=== PATIENT | female | born 1990 | race Caucasian/White ===

== ENCOUNTER → 2017-10-25 | Outpatient (CLI) | payer OTHER ==
[~2017-10-25] MED LIST: BACTRIM PEDIAT200 ML PO; BENADRYL25 MG PO; BIRTH CONTROL1 EAC1 PO; EPI-PEN1 MG/ML MR; LAMICTAL25 MG; MACROBID100 M1 PO; MOTRIN800 MG; MOTRIN800 MG PO; PEPCID20 MG PO; PNV-SELECT1 TAB PO; PREDNICOT20 MG PO; PREDNISOLON5 MG/5 ML PO; ZOLOFT50 MG PO
== END | disposition home or self-care (01) ==
LOC: US 09:30
DX: N63.0 Unspecified lump in unspecified breast (principal)

== ENCOUNTER → 2018-05-25 | Outpatient (CLI) | payer OTHER | END | disposition home or self-care (01) | LOC: MRI 09:00 | DX: M25.862 Other specified joint disorders, left knee (principal); Z98.890 Other specified postprocedural states ==

== ENCOUNTER → 2021-05-29 | Outpatient (CLI) | payer BC | END | disposition home or self-care (01) | LOC: COVID19 15:57 | PROVIDERS: ATTEND Internal Medicine | DX: U07.1 COVID-19 (principal) ==

== ENCOUNTER 2021-09-01 20:08 | Emergency (ER) | payer OTHER ==
[~2021-09-01] VITALS: Ht 165.1 cm; Wt 98.9 kg
== END 2021-09-01 22:34 | disposition home or self-care (01) ==
LOC: ED 20:08
DX: S66.911A Strain of unspecified muscle, fascia and tendon at wrist and hand level, right hand, initial encounter (principal); W01.0XXA Fall on same level from slipping, tripping and stumbling without subsequent striking against object, initial encounter; Y93.89 Activity, other specified; Y92.89 Other specified places as the place of occurrence of the external cause; Y99.8 Other external cause status

== ENCOUNTER → 2022-04-22 | Outpatient (CLI) | payer OTHER | END | disposition home or self-care (01) | LOC: MAMMO 00:15 | PROVIDERS: ATTEND Nurse Practitioner Women's Health | DX: N63.12 Unspecified lump in the right breast, upper inner quadrant (principal); N60.01 Solitary cyst of right breast ==

== ENCOUNTER → 2022-09-15 | Outpatient (CLI) | payer OTHER | END | disposition home or self-care (01) | LOC: LAB 15:25 | PROVIDERS: ATTEND Nurse Practitioner Women's Health | DX: Z80.3 Family history of malignant neoplasm of breast (principal) ==